=== PATIENT | female | born 1965 | race Caucasian/White ===

== ENCOUNTER 2017-10-07 08:41 | Outpatient (CLI) | payer BC | END 2017-10-07 08:42 | disposition home or self-care (01) | LOC: BICMAMMO 08:41 | PROVIDERS: ATTEND Obstetrics & Gynecology | DX: Z12.31 Encounter for screening mammogram for malignant neoplasm of breast (principal) | CPT/HCPCS: 77063; 77067 ==

== ENCOUNTER 2018-09-26 16:04 | Emergency (ER) | payer BC ==
[2018-09-26] MEDS ORDERED: Ketorolac Tromethamine 60 MG/2 ML VIAL ONE (17:08)
[2018-09-26] MEDS ORDERED: Fentanyl 100 MCG/2 ML VIAL ONE (17:08)
[2018-09-26] MEDS ORDERED: Lorazepam 2 MG/ML VIAL ONE (17:58)
--- NOTE | 2018-09-26 18:46 | CT ---
CT LUMBAR SPINE: 09/26/2018 HISTORY: Low back pain. COMPARISON: None. TECHNIQUE: Axial CT imaging obtained at 2.5 mm intervals, through the lumbar spine, without contrast. Coronal a nd sagittal reformatted imaging obtained. FINDINGS: Evaluation for central canal and/or neural foraminal stenosis is suboptimal on routine CT. There is no osseous cause of significant central canal or neural foraminal stenosis within the lumbar spine at any level. Lumbar vertebral body height and alignment are normal. No fracture or evidence of dislocation. No l ytic or blastic bone lesion. There is mild multilevel lower lumbar spine facet hypertrophic change. Imaged retroperitoneal structures appear grossly unremarkable. IMPRESSION: No acute osseous abnormality. If symptoms persist or radicular symptoms are present, nonemergent lum bar spine MRI is suggested. POS: [facility]
== END 2018-09-26 18:26 | disposition home or self-care (01) ==
LOC: ERS 16:04
DX: M54.5 Low back pain (principal); Z79.899 Other long term (current) drug therapy
CPT/HCPCS: 72131; 96372; J1885; J2060; J3010